=== PATIENT | male | born 1940 | race Two or more races ===

== ENCOUNTER 2018-02-20 21:59 | Inpatient (IN) | payer OTHER ==
[~2018-02-20] VITALS: Ht 162.6 cm; Wt 64.4 kg
[~2018-02-20 21:59] MED LIST: UNKNOWN BP MED; UNKNOWN DIABETIC MED; UNOBMED
[2018-02-20] MEDS ORDERED: LANTUS SOL100 UNIT/1 SUBQ (22:06)
[2018-02-20] MEDS ORDERED: BENAZEPRIL HCL10 MG ORAL (22:06)
[2018-02-20] MEDS ORDERED: ATENOLOL25 MG ORAL (22:06)
[2018-02-20 22:30] VITALS: BP 151/75
[2018-02-20 22:37] LABS: APPEARANCE,URINE CLEAR; BILIRUBIN, URINE NEGATIVE (NEGATIVE); GLUCOSE, URINE (UA) 4+ (NEGATIVE); KETONES,URINE 3+ (NEGATIVE); LEUKOCYTE ESTERASE ,URINE NEGATIVE (NEGATIVE); NITRITE,URINE NEGATIVE (NEGATIVE); PH,URINE 5 (4.5-8.0); PROTEIN,URINE 2+ (NEGATIVE); UROBILINOGEN,URINE NORMAL MG/DL (0.0-1.0)
[2018-02-20 22:39] LABS: COLOR,URINE YELLOW
[2018-02-20 22:47] LABS: HEMOGLOBIN 13.8 G/DL (14.2-18.0); MEAN CORPUSCULAR VOLUME 94 FL (80-99); PLATELET COUNT 220 K/UL (150-450); RED BLOOD COUNT 4.26 M/UL (4.70-6.10); RED CELL DISTRIBUTION WIDTH 11.9 % (11.6-14.8); WHITE BLOOD COUNT 13.6 K/UL (4.8-10.8)
[2018-02-20 22:56] LABS: ALANINE AMINOTRANSFERASE 259 U/L (12-78); ALBUMIN 3.3 G/DL (3.4-5.0); ALBUMIN/GLOBULIN RATIO 0.7 (1.0-2.7); ALKALINE PHOSPHATASE 282 U/L (46-116); ANION GAP 14 mmol/L (5-15); ASPARTATE AMINO TRANSFERASE 332 U/L (15-37); BILIRUBIN,TOTAL 5.2 MG/DL (0.2-1.0); BLOOD UREA NITROGEN 16 mg/dL (7-18); CALCIUM 9.2 MG/DL (8.5-10.1); CARBON DIOXIDE 20 MMOL/L (21-32); CHLORIDE 97 MMOL/L (98-107); CREATININE 1.4 MG/DL (0.55-1.30); POTASSIUM 3.3 MMOL/L (3.5-5.1); SODIUM 131 MMOL/L (136-145)
[2018-02-20 22:58] LABS: BILIRUBIN,DIRECT 3.6 MG/DL (0.0-0.3)
[2018-02-20 23:30] VITALS: BP 140/75
[2018-02-20] MEDS ORDERED: Isovue-300 100ml vial INJ PRN (23:30)
[2018-02-20] MEDS ORDERED: Gastrograffin 30ml ORAL PRN (23:30)
[2018-02-21] MEDS ORDERED: Cefepime HCl 2 GM in D5W 55 ML IVPB ONE ×2
[2018-02-21 01:06] VITALS: BP 118/60
[2018-02-21 02:12] VITALS: BP 105/91
--- NOTE | 2018-02-21 02:18 | Emergency Room Report ---
History of Present Illness General Chief Complaint: Abdominal Pain Source: Patient, EMS Present Illness HPI Patient from home with fever, dyspnea and abdominal pain. He also has not been taking his insulin for many days. EMS found with elevated glucose ("crit high") . He has not taken any medicines recently. He complained to [facility] of [place] for 2 days. Reported abdominal pain 5/10. They state he felt hot to touch. No cough, diarrhea, dysuria, rashes, chest pain, sore throat, headache, extremity pain. + Polies and needs to urinate frequently. The patient gives sparse history, but based on abd films, has had a biliary stent placed. He is uncertain where he was hospitalized in the past. Allergies: Coded Allergies: No Known Allergies (Unverified , 03/30/13) Patient History Past Medical History: see triage record Past Surgical History: PTCA - alleged, might actually be biliary Social History: Denies: smoking, alcohol use Social History Narrative from home Reviewed Nursing Documentation: PMH: Agreed; PSxH: Agreed Nursing Documentation-PMH Hx Cardiac Problems: Yes - STENT PLACED 2 YEARS AGO Hx Hypertension: Yes Hx Diabetes: Yes Review of Systems All Other Systems: negative except mentioned in HPI Physical Exam Vital Signs Date Time Temp Pulse Resp B/P (MAP) Pulse Ox O2 Delivery O2 Flow Rate FiO2 02/20/18 21:59 98.8 135 16 155/86 97 Room Air 98.8 Sp02 EP Interpretation: reviewed, normal General Appearance: alert, GCS 15, mild distress Head: normocephalic Eyes: bilateral eye normal inspection, bilateral eye PERRL ENT: moist mucus membranes Neck: supple Respiratory: lungs clear, normal breath sounds, other - tachypnea and deep respirations Cardiovascular #1: tachycardia Cardiovascular #2: 2+ radial (R) Gastrointestinal: normal inspection, normal bowel sounds, no mass, non- distended, no guarding, no rebound, tenderness - diffuse, possibly more RUQ Genitourinary: no CVA tenderness Musculoskeletal: back normal, normal range of motion Neurologic: alert, oriented x3, grossly normal Psychiatric: mood/affect normal Skin: normal inspection, warm/dry - hot Medical Decision Making Diagnostic Impression: Primary Impression: Sepsis Qualified Codes: A41.9 - Sepsis, unspecified organism Additional Impressions: Hyperglycemia Intrahepatic stent Dysfunction Acute cholangitis Common bile duct (CBD) obstruction Abnormal prostate on CT ER Course Patient with dyspnea, fever, elevated glucose and abdominal pain. DDx: sepsis, DKA, diverticulitis, UTI, gall bladder disease amongst others. Evaluation with EKG, CXR, abdominal films, ABG and labs. Treatment with fluid resuscitation, tylenol and analgesia. Suspicion for DKA high. Abdominal pain could be related to DKA or other pathology. ABG excludes DKA. Consider sepsis as source of dyspnea. Insulin ordered based on glucose post bolus. As CXR and UA negative with RUQ stent - CT abdomen ordered. Cefepime and Flagyl ordered to cover abdominal etiology of sepsis. VS without hypotension. Lactate slightly elevated. Patient greatly improved with treatment. Await CT. Repeat insulin IV as still elevated glucose. CT with CBD stent with dilatation suggesting stent obstruction. Also prostate abnormality. Glucose improved. Continued hydration. Not surgical abdomen. Most likely will need GI consultation and ERCP. Admit tele Dr. Costa. Laboratory Tests Test 02/20/18 22:15 02/20/18 22:20 02/20/18 22:23 02/20/18 23:00 Arterial Blood pH 7.446 (7.350-7.450) Arterial Blood Partial Pressure CO2 29.5 mmHg (35.0-45.0) L Arterial Blood Partial Pressure O2 83.7 mmHg (75.0-100.0) Arterial Blood HCO3 19.9 mmol/L (22.0-26.0) L Arterial Blood Oxygen Saturation 96.2 % (92.0-98.0) Arterial Blood Base Excess 2.9 Edson Test Positive White Blood Count 13.6 K/UL (4.8-10.8) H Red Blood Count 4.26 M/UL (4.70-6.10) L Hemoglobin 13.8 G/DL (14.2-18.0) L Hematocrit 40.0 % (42.0-52.0) L Mean Corpuscular Volume 94 FL (80-99) Mean Corpuscular Hemoglobin 32.4 PG (27.0-31.0) H Mean Corpuscular Hemoglobin Concent 34.6 G/DL (32.0-36.0) Red Cell Distribution Width 11.9 % (11.6-14.8) Platelet Count 220 K/UL (150-450) Mean Platelet Volume 6.8 FL (6.5-10.1) Neutrophils (%) (Auto) % (45.0-75.0) Lymphocytes (%) (Auto) % (20.0-45.0) Monocytes (%) (Auto) % (1.0-10.0) Eosinophils (%) (Auto) % (0.0-3.0) Basophils (%) (Auto) % (0.0-2.0) Differential Total Cells Counted 100 Neutrophils % (Manual) 88 % (45-75) H Lymphocytes % (Manual) 5 % (20-45) L Monocytes % (Manual) 4 % (1-10) Eosinophils % (Manual) 0 % (0-3) Basophils % (Manual) 0 % (0-2) Band Neutrophils 3 % (0-8) Platelet Estimate Adequate Platelet Morphology Normal Red Blood Cell Morphology Normal Sodium Level 131 MMOL/L (136-145) L Potassium Level 3.3 MMOL/L (3.5-5.1) L Chloride Level 97 MMOL/L (98-107) L Carbon Dioxide Level 20 MMOL/L (21-32) L Anion Gap 14 mmol/L (5-15) Blood Urea Nitrogen 16 mg/dL (7-18) Creatinine 1.4 MG/DL (0.55-1.30) H Estimate Glomerular Filtration Rate mL/min (>60) Glucose Level 568 MG/DL (74-106) *H Calcium Level 9.2 MG/DL (8.5-10.1) Magnesium Level 1.3 MG/DL (1.8-2.4) L Total Bilirubin 5.2 MG/DL (0.2-1.0) H Direct Bilirubin 3.6 MG/DL (0.0-0.3) H Aspartate Amino Transferase (AST) 332 U/L (15-37) H Alanine Aminotransferase (ALT) 259 U/L (12-78) H Alkaline Phosphatase 282 U/L (46-116) H Total Protein 8.3 G/DL (6.4-8.2) H Albumin 3.3 G/DL (3.4-5.0) L Globulin 5.0 g/dL Albumin/Globulin Ratio 0.7 (1.0-2.7) L Lipase 126 U/L (73-393) Acetone Level Negative (NEGATIVE) Urine Color Yellow Urine Appearance Clear Urine pH 5 (4.5-8.0) Urine Specific [place] 1.010 (1.005-1.035) Urine Protein 2+ (NEGATIVE) H Urine Glucose (UA) 4+ (NEGATIVE) H Urine Ketones 3+ (NEGATIVE) H Urine Occult Blood 2+ (NEGATIVE) H Urine Nitrite Negative (NEGATIVE) Urine Bilirubin Negative (NEGATIVE) Urine Urobilinogen Normal MG/DL (0.0-1.0) Urine Leukocyte Esterase Negative (NEGATIVE) Urine RBC 2-4 /HPF (0 - 0) H Urine WBC 0-2 /HPF (0 - 0) Urine Squamous Epithelial Cells None /LPF (NONE/OCC) Urine Amorphous Sediment Few /LPF (NONE) H Urine Bacteria Few /HPF (NONE) Lactic Acid Level 2.80 mmol/L (0.66-2.22) H Test 02/21/18 01:00 Lactic Acid Level 6.10 mmol/L (0.66-2.22) H EKG Diagnostic Results Rate: tachycardiac Rhythm: NSR ST Segments: no acute changes Rhythm Strip Diag. Results EP Interpretation: yes Rhythm: no PVC's, no ectopy, other - Sinus tachycardia Chest X-Ray Diagnostic Results Chest X-Ray Diagnostic Results : Chest X-Ray Ordered: Yes # of Views/Limited/Complete: 1 View Indication: Other EP Interpretation: Yes Interpretation: no consolidation, no effusion, no pneumothorax, no acute cardiopulmonary disease Impression: No acute disease Electronically Signed by: Electronically signed by Beltran Manzanares MD Other X-Ray Diagnostic Results Other X-Ray Diagnostic Results : X-Ray ordered: Abdomen # of Views/Limited Vs Complete: 1 View Indication: Pain EP Interpretation: Yes Interpretation: nonspecific bowel gas, no sbo, other - Intrahepatic stent Impression: Other Electronically Signed by: Electronically signed by Beltran Manzanares MD CT/MRI/US Diagnostic Results CT/MRI/US Diagnostic Results : Imaging Test Ordered: Abdomen and pelvis Impression Moderate to severe intra-and extrahepatic biliary ductal dilatation. Common duct is severely dilated containing stent and debris measuring up to 2.9 cm in diameter 2.4 x 3.7 cm mass in the posterior base of the urinary bladder likely protrusion of lobulated prostate gland Last Vital Signs Date Time Temp Pulse Resp B/P (MAP) Pulse Ox O2 Delivery O2 Flow Rate FiO2 02/21/18 01:46 99.4 98 18 118/60 97 Room Air 99.4 Status: improved Disposition: ADMITTED INPATIENT Condition: Serious Referrals: NON PHYSICIAN (PCP) Patient Instructions: Abdominal Pain, Adult Beltran Manzanares M.D. February 21, 2018 02:18
[2018-02-21 04:00] VITALS: BP 108/67
[2018-02-21] MEDS ORDERED: cefTRIAXone 1 GM in D5W 55 ML IVPB SCH (04:00)
[2018-02-21] MEDS: NovoLOG Insulin Flexpen SUBQ SCH ×3 (07:11→16:53)
[2018-02-21 08:00] VITALS: BP 106/62
--- NOTE | 2018-02-21 08:44 | Diagnostic Imaging Report ---
Indication: Abdominal pain Technique: Continuous helical transaxial imaging of the abdomen and pelvis was obtained from the lung bases to the pubic symphysis during intravenous contrast administration. Coronal 2-D reformats were also obtained. Study obtained in a Siemens sensation [address] Automatic Exposure Control was utilized. Total Dose length Product (DLP): 570.[address] Dose Index Volume (CTDIvol): 11.29 mGy Comparison: 03/30/2013 Findings: There is moderate biliary ductal dilatation despite presence of a CBD stent which appears to be in good position. The dilated CBD contains heterogeneous material as well as a small amount of air. These may be small stones or sludge. Correlate clinically. ERCP for stent replacement or revision may be needed. The prostate gland is markedly enlarged measuring about 6 x 7.3 x 8 cm. The superior part of the prostate gland shows heterogeneous enhancement and is focally prominent extending into the bladder. Possibility of prostate carcinoma should be considered. Diverticulosis of the colon is extensive. No definite diverticulitis appreciated. Normal appendix noted. No evidence of bowel obstruction. There is a small right inguinal hernia containing fat. There is narrowing of intervertebral discs and accompanying endplate osteophyte formation. Hypertrophied facet joints also demonstrated.. Aorta is moderately calcified. Kidneys are unremarkable. Mild atelectasis at the lung bases noted. Small hiatal hernia present. IMPRESSION: Sludge versus stones within the biliary ducts which appear dilated despite presence of a CBD stent. Please correlate clinically. Consider ERCP for further evaluation. Prostate hypertrophy with abnormal heterogeneous appearance is noted in the upper part of the prostate gland. Prostate carcinoma not excluded. Correlate clinically. Spondylosis Atherosclerotic disease Extensive diverticulosis. No definite diverticulitis. Small hiatal hernia Basilar atelectasis. The CT scanner at [facility] is accredited by the [employer] and the scans are performed using dose optimization techniques as appropriate to a performed exam including Automatic Exposure control.
[2018-02-21] MEDS ORDERED: Atenolol 25mg tab ORAL SCH (09:00)
[2018-02-21] MEDS ORDERED: Benazepril 10mg tab ORAL SCH (09:00)
--- NOTE | 2018-02-21 09:56 | Diagnostic Imaging Report ---
Indication: Abdominal pain Comparison: None Single view of the abdomen obtained Findings: Bowel gas pattern is nonspecific. There is a CBD stent present in the right upper quadrant abdomen. There is a cholecystectomy clip noted. No mass, ectopic calcifications, or abnormal gas collections are identified. The bones are unremarkable. Degenerative changes of the thoracolumbar spine demonstrated. Impression: No acute findings
--- NOTE | 2018-02-21 10:02 | Diagnostic Imaging Report ---
Indication: Dyspnea Comparison: None A single view chest radiograph was obtained. Findings: Lung volumes are low. No infiltrate seen. Bones are osteopenic. Aorta is mildly calcified. IMPRESSION: No acute disease
[2018-02-21 12:00] VITALS: BP 92/52
--- NOTE | 2018-02-21 12:44 | Infectious Diseases Prog Note ---
Assessment/Plan Problems: (1) Common bile duct (CBD) obstruction Assessment & Plan: with stet, and elevated liver function tests, will start cefepime and continue metronidazol empiric coverage, recommend MRCP and GI eval (2) Sepsis Assessment & Plan: due to the above, will start cefepime and metronidazole empiric coverage pending blood culture (3) Hyperglycemia Assessment & Plan: due to the above, recommend tight glycemic control to keep blood glucose between 100-140 (4) Acute cholangitis Assessment & Plan: due to the above , will start cefepime and misonidazole empirically, will need ERCP for further eval . Subjective Allergies: Coded Allergies: No Known Allergies (Unverified , 03/30/13) Objective Vital Signs Last 24 Hour Vital Signs Date Time Temp Pulse Resp B/P (MAP) Pulse Ox O2 Delivery O2 Flow Rate FiO2 02/21/18 09:21 106/62 02/21/18 09:21 85 106/62 02/21/18 08:00 97.4 85 22 106/62 98 Room Air 97.4 02/21/18 07:45 89 02/21/18 04:00 91 02/21/18 04:00 98.0 91 20 108/67 96 Room Air 98.0 02/21/18 02:12 98.2 97 19 105/91 98 Room Air 98.2 02/21/18 02:00 98 02/21/18 01:46 99.4 98 18 118/60 97 Room Air 99.4 02/21/18 01:06 99.4 98 18 118/60 97 Room Air 99.4 02/20/18 23:46 99.4 02/20/18 23:30 99.4 110 27 140/75 98 Room Air 99.4 02/20/18 22:50 102.4 02/20/18 22:30 102.4 129 28 151/75 95 Room Air 102.4 02/20/18 21:59 98.8 135 16 155/86 97 Room Air 98.8 Height (Feet): 5 Height (Inches): 4.00 Weight (Pounds): 142 Laboratory Tests Test 02/20/18 22:15 02/20/18 22:20 02/20/18 22:23 02/20/18 23:00 Arterial Blood pH 7.446 (7.350-7.450) Arterial Blood Partial Pressure CO2 29.5 mmHg (35.0-45.0) L Arterial Blood Partial Pressure O2 83.7 mmHg (75.0-100.0) Arterial Blood HCO3 19.9 mmol/L (22.0-26.0) L Arterial Blood Oxygen Saturation 96.2 % (92.0-98.0) Arterial Blood Base Excess 2.9 Edson Test Positive White Blood Count 13.6 K/UL (4.8-10.8) H Red Blood Count 4.26 M/UL (4.70-6.10) L Hemoglobin 13.8 G/DL (14.2-18.0) L Hematocrit 40.0 % (42.0-52.0) L Mean Corpuscular Volume 94 FL (80-99) Mean Corpuscular Hemoglobin 32.4 PG (27.0-31.0) H Mean Corpuscular Hemoglobin Concent 34.6 G/DL (32.0-36.0) Red Cell Distribution Width 11.9 % (11.6-14.8) Platelet Count 220 K/UL (150-450) Mean Platelet Volume 6.8 FL (6.5-10.1) Neutrophils (%) (Auto) % (45.0-75.0) Lymphocytes (%) (Auto) % (20.0-45.0) Monocytes (%) (Auto) % (1.0-10.0) Eosinophils (%) (Auto) % (0.0-3.0) Basophils (%) (Auto) % (0.0-2.0) Differential Total Cells Counted 100 Neutrophils % (Manual) 88 % (45-75) H Lymphocytes % (Manual) 5 % (20-45) L Monocytes % (Manual) 4 % (1-10) Eosinophils % (Manual) 0 % (0-3) Basophils % (Manual) 0 % (0-2) Band Neutrophils 3 % (0-8) Platelet Estimate Adequate Platelet Morphology Normal Red Blood Cell Morphology Normal Sodium Level 131 MMOL/L (136-145) L Potassium Level 3.3 MMOL/L (3.5-5.1) L Chloride Level 97 MMOL/L (98-107) L Carbon Dioxide Level 20 MMOL/L (21-32) L Anion Gap 14 mmol/L (5-15) Blood Urea Nitrogen 16 mg/dL (7-18) Creatinine 1.4 MG/DL (0.55-1.30) H Estimat Glomerular Filtration Rate mL/min (>60) Glucose Level 568 MG/DL (74-106) *H Calcium Level 9.2 MG/DL (8.5-10.1) Magnesium Level 1.3 MG/DL (1.8-2.4) L Total Bilirubin 5.2 MG/DL (0.2-1.0) H Direct Bilirubin 3.6 MG/DL (0.0-0.3) H Aspartate Amino Transf (AST/SGOT) 332 U/L (15-37) H Alanine Aminotransferase (ALT/SGPT) 259 U/L (12-78) H Alkaline Phosphatase 282 U/L (46-116) H Total Protein 8.3 G/DL (6.4-8.2) H Albumin 3.3 G/DL (3.4-5.0) L Globulin 5.0 g/dL Albumin/Globulin Ratio 0.7 (1.0-2.7) L Lipase 126 U/L (73-393) Acetone Level Negative (NEGATIVE) Urine Color Yellow Urine Appearance Clear Urine pH 5 (4.5-8.0) Urine Specific [place] 1.010 (1.005-1.035) Urine Protein 2+ (NEGATIVE) H Urine Glucose (UA) 4+ (NEGATIVE) H Urine Ketones 3+ (NEGATIVE) H Urine Occult Blood 2+ (NEGATIVE) H Urine Nitrite Negative (NEGATIVE) Urine Bilirubin Negative (NEGATIVE) Urine Urobilinogen Normal MG/DL (0.0-1.0) Urine Leukocyte Esterase Negative (NEGATIVE) Urine RBC 2-4 /HPF (0 - 0) H Urine WBC 0-2 /HPF (0 - 0) Urine Squamous Epithelial Cells None /LPF (NONE/OCC) Urine Amorphous Sediment Few /LPF (NONE) H Urine Bacteria Few /HPF (NONE) Lactic Acid Level 2.80 mmol/L (0.66-2.22) H Test 02/21/18 01:00 Lactic Acid Level 6.10 mmol/L (0.66-2.22) H Current Medications Medications (Trade) Dose Ordered Sig/Radha Route PRN Reason Start Time Stop Time Status Last Admin Dose Admin Atenolol (Tenormin) 25 mg DAILY ORAL 02/21/18 09:00 03/23/18 08:59 02/21/18 09:21 Benazepril HCl (Lotensin) 10 mg DAILY ORAL 02/21/18 09:00 03/23/18 08:59 02/21/18 09:21 Ceftriaxone Sodium 1 gm/ Dextrose 55 ml @ 110 mls/hr Q24H IVPB 02/21/18 04:00 02/28/18 03:59 02/21/18 04:00 Dextrose (Dextrose 50%) 25 ml STAT PRN IV Hypoglycemia 02/21/18 04:00 03/23/18 03:59 Dextrose (Dextrose 50%) 50 ml STAT PRN IV Hypoglycemia 02/21/18 04:00 03/23/18 03:59 Insulin Aspart (NovoLOG) BEFORE MEALS AND HS SUBQ 02/21/18 06:30 03/23/18 06:29 02/21/18 11:40 Metronidazole 100 ml @ 100 mls/hr EVERY 8 HOURS IVPB 02/21/18 11:00 02/28/18 10:59 Metronidazole 100 ml @ 100 mls/hr Q8HR IVPB 02/21/18 14:00 02/28/18 13:59 Sodium Chloride 1,000 ml @ 75 mls/hr [id number] IV 02/21/18 04:00 03/23/18 03:59 02/21/18 04:00 Keily Kohler M.D. February 21, 2018 12:44
[2018-02-21] MEDS ORDERED: Cefepime HCl 2 GM in D5W 110 ML IVPB SCH (14:00)
--- NOTE | 2018-02-21 14:15 | History and Physical Report ---
DATE OF ADMISSION: 02/20/2018 HISTORY OF PRESENT ILLNESS: This is a very pleasant 77-year-old male, who came to the hospital yesterday with complaints of abdominal pain. The patient was seen and worked up in the emergency room, admitted to the hospital for subsequent management and care. The patient unable to provide any further history. However, per review of imaging studies, he is noted to have moderate to severe intra and extrahepatic biliary ductal dilatation. The CBD dilated contained stent and debris. There is also additionally a mass in the posterior base of the urinary bladder likely protrusion of the lobulated prostate gland. The patient unable to provide further history. REVIEW OF SYSTEMS: Denies any diarrhea. Denies any headaches, hematemesis, melena, hematochezia, or weight loss. PAST MEDICAL HISTORY: Notable for hypertension, diabetes mellitus, and cardiac stent placement. MEDICATIONS: The list of home medications include benazepril and atenolol. It is unclear what he takes for diabetes. ALLERGIES: None reported. PHYSICAL EXAMINATION: GENERAL: Reveals a 77-year-old male. HEENT: Unremarkable. CHEST: Shows clear breath sounds bilaterally. ABDOMEN: Soft and mild right upper quadrant discomfort. EXTREMITIES: There is no edema, cyanosis, or clubbing. NEUROLOGIC: Nonfocal. DIAGNOSTIC AND LABORATORY DATA: Imaging study discussed above. X-ray of the chest unremarkable. Lab testing shows white count 13, hemoglobin of 13.8, and platelet count is normal. Chemistries show glucose 568. Lactic acid 2.8, now 6.1. Bilirubin 5.5. AST 332, ALT 252, and alkaline phosphatase 282. Urinalysis negative. ABG shows 7.44, pCO2 , and pO2 33. IMPRESSION: 1. Transaminitis. 2. Hyperbilirubinemia. 3. Obstructive jaundice. 4. Hypertension. 5. Diabetes mellitus. 6. Sepsis. DISCUSSION: Admitted to the hospital. Continue home medications. We will consult GI and Endocrinology. Start IV fluids and IV antibiotics. We will follow carefully, SCDs. Ignacio Costa M.D. DR: AI JOB#: [id number] CC:
--- NOTE | 2018-02-21 14:25 | GI Initial Consult Note ---
History of Present Illness General Date patient seen: February 21, 2018 Time patient seen: 09:00 Reason for Hospitalization: Abdominal Pain Referring physician: BUD BULLOCK Reason for Consultation: CBD STENT MALFUNCTION Present Illness HPI 77 year old male patient presents to the ED with abdominal pain. Noted to have history of CBD stent placement approximately [address] AP showed mod to serve biliary ductal dilation with unknown size of CBD. Sludge versus stones within the biliary ducts which appear dilated despite presence of a CBD stent. Labs reviewed showing elevated LFTs, mild leukocytosis. Pt seen, awake A&Ox4 NAD with no active s/sx of N/V/D. C/o of right upper quandrant pain. Denies any unintentional weight loss or changes in dietary habits. No signs of abuse or neglect. Patient is not fall risk. Home Meds Reported Medications Insulin Glargine (LANTUS) 100 Unit/1 Ml Insuln.pen, 0 SUBQ BEDTIME, #1 EA 0 Refills 02/20/18 Benazepril Hcl* (BENAZEPRIL HCL*) 10 Mg Tablet, 10 MG ORAL DAILY, TAB 02/20/18 Atenolol* (TENORMIN*) 25 Mg Tablet, 25 MG ORAL DAILY, TAB 02/20/18 [Unknown Diabetic Med] No Conflict Check 03/30/13 [Unknown Bp Med] No Conflict Check 03/30/13 Unable to Obtain Medications (UNABLE TO OBTAIN MEDS) 1 Ea Ea 03/30/13 Med list reviewed/reconciled: Yes Allergies: Coded Allergies: No Known Allergies (Unverified , 03/30/13) Patient History PMH Narrative HTN DM Past Surgical History: other - history of CBD stent placement approximately 2 years ago Social History: Denies: smoking, alcohol use, drug use, other Review of Systems All Other Systems: negative except mentioned in HPI Physical Exam Vital Signs Date Time Temp Pulse Resp B/P (MAP) Pulse Ox O2 Delivery O2 Flow Rate FiO2 02/20/18 21:59 98.8 135 16 155/86 97 Room Air 98.8 Sp02 EP Interpretation: reviewed, normal Labs Laboratory Tests Test 02/20/18 22:15 02/20/18 22:20 02/20/18 22:23 02/20/18 23:00 Arterial Blood pH 7.446 (7.350-7.450) Arterial Blood Partial Pressure CO2 29.5 mmHg (35.0-45.0) L Arterial Blood Partial Pressure O2 83.7 mmHg (75.0-100.0) Arterial Blood HCO3 19.9 mmol/L (22.0-26.0) L Arterial Blood Oxygen Saturation 96.2 % (92.0-98.0) Arterial Blood Base Excess 2.9 Edson Test Positive White Blood Count 13.6 K/UL (4.8-10.8) H Red Blood Count 4.26 M/UL (4.70-6.10) L Hemoglobin 13.8 G/DL (14.2-18.0) L Hematocrit 40.0 % (42.0-52.0) L Mean Corpuscular Volume 94 FL (80-99) Mean Corpuscular Hemoglobin 32.4 PG (27.0-31.0) H Mean Corpuscular Hemoglobin Concent 34.6 G/DL (32.0-36.0) Red Cell Distribution Width 11.9 % (11.6-14.8) Platelet Count 220 K/UL (150-450) Mean Platelet Volume 6.8 FL (6.5-10.1) Neutrophils (%) (Auto) % (45.0-75.0) Lymphocytes (%) (Auto) % (20.0-45.0) Monocytes (%) (Auto) % (1.0-10.0) Eosinophils (%) (Auto) % (0.0-3.0) Basophils (%) (Auto) % (0.0-2.0) Differential Total Cells Counted 100 Neutrophils % (Manual) 88 % (45-75) H Lymphocytes % (Manual) 5 % (20-45) L Monocytes % (Manual) 4 % (1-10) Eosinophils % (Manual) 0 % (0-3) Basophils % (Manual) 0 % (0-2) Band Neutrophils 3 % (0-8) Platelet Estimate Adequate Platelet Morphology Normal Red Blood Cell Morphology Normal Sodium Level 131 MMOL/L (136-145) L Potassium Level 3.3 MMOL/L (3.5-5.1) L Chloride Level 97 MMOL/L (98-107) L Carbon Dioxide Level 20 MMOL/L (21-32) L Anion Gap 14 mmol/L (5-15) Blood Urea Nitrogen 16 mg/dL (7-18) Creatinine 1.4 MG/DL (0.55-1.30) H Estimat Glomerular Filtration Rate mL/min (>60) Glucose Level 568 MG/DL (74-106) *H Calcium Level 9.2 MG/DL (8.5-10.1) Magnesium Level 1.3 MG/DL (1.8-2.4) L Total Bilirubin 5.2 MG/DL (0.2-1.0) H Direct Bilirubin 3.6 MG/DL (0.0-0.3) H Aspartate Amino Transf (AST/SGOT) 332 U/L (15-37) H Alanine Aminotransferase (ALT/SGPT) 259 U/L (12-78) H Alkaline Phosphatase 282 U/L (46-116) H Total Protein 8.3 G/DL (6.4-8.2) H Albumin 3.3 G/DL (3.4-5.0) L Globulin 5.0 g/dL Albumin/Globulin Ratio 0.7 (1.0-2.7) L Lipase 126 U/L (73-393) Acetone Level Negative (NEGATIVE) Urine Color Yellow Urine Appearance Clear Urine pH 5 (4.5-8.0) Urine Specific Angelica 1.010 (1.005-1.035) Urine Protein 2+ (NEGATIVE) H Urine Glucose (UA) 4+ (NEGATIVE) H Urine Ketones 3+ (NEGATIVE) H Urine Occult Blood 2+ (NEGATIVE) H Urine Nitrite Negative (NEGATIVE) Urine Bilirubin Negative (NEGATIVE) Urine Urobilinogen Normal MG/DL (0.0-1.0) Urine Leukocyte Esterase Negative (NEGATIVE) Urine RBC 2-4 /HPF (0 - 0) H Urine WBC 0-2 /HPF (0 - 0) Urine Squamous Epithelial Cells None /LPF (NONE/OCC) Urine Amorphous Sediment Few /LPF (NONE) H Urine Bacteria Few /HPF (NONE) Lactic Acid Level 2.80 mmol/L (0.66-2.22) H Test 02/21/18 01:00 Lactic Acid Level 6.10 mmol/L (0.66-2.22) H General Appearance: well appearing, no apparent distress, alert Head: normocephalic EENT: PERRL/EOMI, normal ENT inspection Neck: supple Respiratory: normal breath sounds, no respiratory distress Cardiovascular: normal rate Gastrointestinal: normal inspection, non tender, soft, normal bowel sounds, non -distended Rectal: deferred Genitourinary: deferred Musculoskeletal: normal inspection, back normal Neurologic: normal inspection, alert, oriented x3, responsive Psychiatric: normal inspection, judgement/insight normal, memory normal Skin: normal inspection, normal color, no rash, warm/dry, palpation normal, well hydrated Lymphatic: normal inspection, no adenopathy Current Medications Current Medications Medications (Trade) Dose Ordered Sig/Radha Route PRN Reason Start Time Stop Time Status Last Admin Dose Admin Atenolol (Tenormin) 25 mg DAILY ORAL 02/21/18 09:00 03/23/18 08:59 02/21/18 09:21 Benazepril HCl (Lotensin) 10 mg DAILY ORAL 02/21/18 09:00 03/23/18 08:59 02/21/18 09:21 Cefepime HCl 2 gm/ Dextrose 110 ml @ 220 mls/hr Q24H IVPB 02/21/18 14:00 02/28/18 13:59 02/21/18 14:11 Dextrose (Dextrose 50%) 25 ml STAT PRN IV Hypoglycemia 02/21/18 04:00 03/23/18 03:59 Dextrose (Dextrose 50%) 50 ml STAT PRN IV Hypoglycemia 02/21/18 04:00 03/23/18 03:59 Insulin Aspart (NovoLOG) BEFORE MEALS AND HS SUBQ 02/21/18 06:30 03/23/18 06:29 02/21/18 11:40 Metronidazole 100 ml @ 100 mls/hr Q8HR IVPB 02/21/18 14:00 02/28/18 13:59 Sodium Chloride 1,000 ml @ 75 mls/hr [id number] IV 02/21/18 04:00 03/23/18 03:59 02/21/18 04:00 GI: Plan Problems: (1) Cholecystitis with cholangitis (2) Common bile duct (CBD) obstruction (3) Acute cholangitis Plan CT AP reviewed >> - Sludge versus stones within the biliary ducts which appear dilated despite presence of a CBD stent. elevated LFTs suggestive of biliary obstruction history of CBD stent placement x 2 years will schedule patient for ERCP tomorrow. - NPO + IVFs, NPO @ [facility]. - abx ppi prn transfusions trend LFTs fu labs d/w in length plan of care with patient. Discussed with Dr. Milligan. Thank you for this patient referral, we will follow. The patient was seen and examined at bedside and all new and available data was reviewed in the patients chart. I agree with the above findings, impression and plan. (Patient seen earlier today. Signature stamp does not reflect patient encounter time.). - MD Lilliana Haines Anh Ramón Cabello February 21, 2018 14:25
[2018-02-21 16:00] VITALS: BP 106/54
--- NOTE | 2018-02-21 16:43 | Cardiology Report ---
APPROVED REPORT EKG Measurement Heart [id number] Sinus tachycardia Biatrial enlargement Abnormal ECG
--- NOTE | 2018-02-21 17:15 | Consultation ---
DATE OF CONSULTATION: 02/21/2018 INFECTIOUS DISEASES CONSULTATION CONSULTING PHYSICIAN: Keily Kohler M.D. REQUESTING PHYSICIAN: Ignacio Costa M.D. REASON FOR CONSULTATION: Sepsis, cholangitis, common bile duct stent obstruction with possible cholecystitis. Recommendation for antibiotics treatment. HISTORY OF PRESENT ILLNESS: The patient is a 77-year-old male with past medical history of diabetes, hypertension, coronary artery disease status post stent placement and common bile duct obstruction status post stent placement presented to the emergency room at [facility] with sudden onset of abdominal pain, localized in the epigastric area. It was 10/10. The patient did not have any nausea or vomiting. No diarrhea. No blood in the stool. CT scan image of the abdomen showed evidence of stone with sludge in the biliary duct which appeared dilated in spite of the presence of the common bile duct stent which was concerning for cholangitis. The patient was given cefepime and metronidazole in the emergency room. An Infectious Diseases consultation was requested for further evaluation and management. REVIEW OF SYSTEMS: A 14-point of system reviewed were all negative apart from the one I mentioned above in my History and Physical. PAST MEDICAL HISTORY: Significant for diabetes, poorly controlled hypertension, common bile duct obstruction status post stent placement. PAST SURGICAL HISTORY: He had cardiac stent placement and common bile duct placement. ALLERGIES: No known drug allergy. MEDICATIONS: He is currently on ceftriaxone and metronidazole as per the admitting physician. For the rest of his medications, please refer to MAR. FAMILY HISTORY: Noncontributory. SOCIAL HISTORY: The patient lives with family and denied using any drugs, tobacco, or alcohol. PHYSICAL EXAMINATION: VITAL SIGNS: Temperature 97.4, pulse 85, respirations 22, blood pressure 106/62, saturation 98% on room air. GENERAL: Elderly male, lying in bed, awake, alert, and oriented x3, not in distress, complaining of epigastric pain. HEENT: Normocephalic and atraumatic. Pupils reactive to light equally. Moist oral mucosa. No exudate or thrush. No ulceration. NECK: Supple. No lymphadenopathy. CARDIOVASCULAR: Regular rate and rhythm. No murmur. No gallop. LUNGS: Clear bilaterally. No wheezing. No rhonchi. Normal breathing effort. ABDOMEN: Soft, nondistended. Tender in the epigastric area. No hepatosplenomegaly. No ascites. No rebound. EXTREMITIES: No edema. No cyanosis. LABORATORY AND DIAGNOSTIC DATA: White count of 13.6, hemoglobin of 13.8, platelet count of 220. BUN 16 and creatinine is 1.4. Glucose of 568, AST of 332, ALT of 259, alkaline phosphatase 282. Urinalysis showed +2 protein, +4 glucose, +3 ketones, +2 occult blood. IMAGING: CT scan abdomen and pelvis showed sludge versus stones within the biliary ducts which appeared dilated despite presence of common bile duct stent, prostate hypertrophy with normal heterogeneous appearance is noted in the upper part of the prostate gland. Abdominal x-ray showed no acute finding. Chest x-ray showed no acute disease. ASSESSMENT AND RECOMMENDATION: 1. Common bile duct obstruction with possible stone rule out ascending cholangitis with elevated liver function tests. We will start the patient on cefepime and continue metronidazole empiric coverage. Recommend GI consult and MRCP for further evaluation. The patient may need ERCP to rule out stent obstruction. 2. Cholangitis due to the above. We will start cefepime and metronidazole. Recommend GI consult and MRCP for further evaluation. 3. Sepsis due to due to the above. Continue cefepime and Flagyl empiric coverage. Pending blood culture. 4. Hyperglycemia due to the above. Recommend tight glycemic control to keep blood glucose between 100 to 140. Thank you for the consult. ID will continue to follow. Keily Kohler M.D. DR: Cherelle JOB#: [id number] CC:
--- NOTE | 2018-02-23 13:07 | Discharge Summary ---
Discharge Summary Hospital Course Date of Admission February 20, 2018 at 23:37 Date of Discharge February 21, 2018 at 17:59 Admitting Diagnosis SEPSIS HPI Vahe Dyer is a 77 year old male who was admitted on February 20, 2018 at 23: 37 for Sepsis Hospital Course [id number] Discharge Discharge Disposition Patient was discharged to [facility] Jessica Sen NP February 23, 2018 13:07
--- NOTE | 2018-02-24 02:30 | Discharge Summary 2 SIG ---
DATE OF ADMISSION: 02/20/2018 DATE OF DISCHARGE: 02/21/2018 CONSULTANTS: 1. Keily Kohler M.D. 2. Marin Milligan M.D. BRIEF HOSPITAL COURSE: The patient is a 77-year-old male, who came to the hospital complaining of abdominal pain. He has medical history notable for hypertension, diabetes mellitus, and cardiac stent placement. Workup at ED showed elevated WBC 13.6. Glucose was 568. Anion gap was normal. Acetone was negative. He was given cefepime and Flagyl. He had a chest x-ray done that was negative. KUB was negative. Abdominal and pelvic CT showed sludge versus stones within the biliary ducts. There was prostate hypertrophy with abnormal heterogenous appearance noted in the upper part of the prostate gland. The patient possibly with cholangitis due to common bile duct obstruction with possible stone. Eventually, he was placed on NPO and was given IV hydration. He was given proton pump inhibitors. He was eventually transferred to [facility]. FINAL DIAGNOSES: 1. Common bile duct obstruction with possible stone, rule out ascending cholangitis with elevated liver function tests. 2. Cholangitis due to above. 3. Sepsis due to above. 4. Hyperglycemia. DISPOSITION: The patient was discharged to [facility]. Ignacio Costa M.D. I have been assigned to dictate discharge summary on this account and I was not involved in the patient's management. Jessica Sen N.P. DR: TYRONE JOB#: [id number] CC:
== END 2018-02-21 17:59 | disposition short-term general hospital (02) | DRG 872 ==
LOC: EDBD 21:59 → EMR 22:09 → 2W 23:37 → EDBEDREQ 02-21 00:34 → 2W 02-21 13:59
DX: A41.9 Sepsis, unspecified organism (principal); K80.51 Calculus of bile duct without cholangitis or cholecystitis with obstruction; K80.31 Calculus of bile duct with cholangitis, unspecified, with obstruction; R73.9 Hyperglycemia, unspecified
CPT/HCPCS: 36415; 36600; 71045; 74018; 74177; 80053; 81003; 82009; 82248; 82803; 82962; 83605; 83690; 83735; 85007; 85025; 87040; 93005; 99285; J1815; J2405